=== PATIENT | male | born 1950 | race American Indian/Alaskan Native ===

== ENCOUNTER 2016-11-03 14:39 | Inpatient (IN) | payer MEDICAID ==
[~2016-11-03] VITALS: Ht 172.7 cm; Wt 90.7 kg
[~2016-11-03 14:39] MED LIST: ASPIR 8181 MG ORAL; ATORVASTATIN CA20 MG ORAL; LISINOPRIL5 MG ORAL
[2016-11-03 14:41] VITALS: BP 113/82
[2016-11-03 15:37] LABS: BASOPHILS % (AUTO) 0.8 % (0.0-2.0); EOSINOPHILS % (AUTO) 1.9 % (0.0-3.0); LYMPHOCYTES % (AUTO) 19.4 % (20.0-45.0); MEAN CORPUSCULAR HEMOGLOBIN 30.7 PG (27.0-31.0); MEAN CORPUSCULAR HGB CONC 33.5 G/DL (32.0-36.0); MEAN CORPUSCULAR VOLUME 92 FL (80-99); MEAN PLATELET VOLUME 9.6 FL (6.5-10.1); MONOCYTES % (AUTO) 6.1 % (1.0-10.0); NEUTROPHILS % (AUTO) 71.8 % (45.0-75.0); PLATELET COUNT 193 K/UL (150-450); RED BLOOD COUNT 5.56 M/UL (4.70-6.10); RED CELL DISTRIBUTION WIDTH 11.6 % (11.6-14.8); WHITE BLOOD COUNT 9.5 K/UL (4.8-10.8)
--- NOTE | 2016-11-03 15:45 | Emergency Room Report ---
History of Present Illness General Chief Complaint: Seizure Source: Patient, Medical Record, EMS Present Illness HPI [id number] sent from [facility] for ?seizure Prior CVA Patient not sure if he had seizure/not No complaints currently Denies chest pain, SOB, abd pain, headache, fever/chills, neck pain Allergies: Coded Allergies: No Known Allergies (Unverified , 11/03/16) Patient History Past Medical History: HTN, CHF, CVA/TIA Past Surgical History: none Pertinent Family History: none Social History: Reports: alcohol use Immunizations: UTD Reviewed Nursing Documentation: PMH: Agreed, PSxH: Agreed Nursing Documentation-PMH Hx Hypertension: Yes Hx COPD: Yes Review of Systems All Other Systems: negative except mentioned in HPI Physical Exam Vital Signs Date Time Temp Pulse Resp B/P (MAP) Pulse Ox O2 Delivery O2 Flow Rate FiO2 11/03/16 14:31 86 15 144/70 99 11/03/16 14:41 Room Air 11/03/16 14:41 97.1 Sp02 EP Interpretation: reviewed, normal General Appearance: normal inspection, well appearing, no apparent distress, alert, GCS 15, non-toxic Head: normocephalic, atraumatic Eyes: bilateral eye PERRL, bilateral eye EOMI ENT: normal ENT inspection, hearing grossly normal, normal voice Neck: normal inspection, full range of motion, supple, no bony tend Respiratory: normal inspection, lungs clear, normal breath sounds, no respiratory distress, no retraction, no wheezing Cardiovascular #1: regular rate, rhythm, no edema Gastrointestinal: normal inspection, normal bowel sounds, non tender, soft, no guarding, no hernia Genitourinary: no CVA tenderness Musculoskeletal: normal inspection, back normal, normal range of motion, Catracho' s Sign negative Neurologic: normal inspection, alert, oriented x3, responsive, strickler attendant III-XII nml as tested, motor strength/tone normal, speech normal Psychiatric: normal inspection, judgement/insight normal, mood/affect normal Skin: normal inspection Medical Decision Making Diagnostic Impression: Primary Impression: Seizure Additional Impression: Encephalomalacia ER Course VSS. Afebrile No focal neuro deficits Previous CVA as focus? CT head today no CVA, mass, mass effect. Left posterior.parietal and occipital encephalomalacia. Labs: No leuks. H&h stable. No metabolic abnormality ECG: NSR. No ischemia Given age, history of prior CVA, warrants admission for Neuro consult, for new onset seizure Enceph possible foci of seizure activity Loaded with Keppra in ED Endorsed to Dr Oconnor for Dr Mcduffie at 5pm med/surg admission EKG Diagnostic Results Rate: normal Rhythm: NSR ST Segments: no acute changes ASA given to the pt in ED: No Rhythm Strip Diag. Results EP Interpretation: yes Rate: 85 Rhythm: NSR, no PVC's, no ectopy Chest X-Ray Diagnostic Results Chest X-Ray Diagnostic Results : Chest X-Ray Ordered: Yes # of Views/Limited/Complete: 1 View Indication: Other - seizure EP Interpretation: Yes Interpretation: no consolidation, no effusion, no pneumothorax, no acute cardiopulmonary disease Impression: No acute disease Electronically Signed by: Dr Jordyn Mann MD Last Vital Signs Date Time Temp Pulse Resp B/P (MAP) Pulse Ox O2 Delivery O2 Flow Rate FiO2 11/03/16 14:41 97.1 98 32 113/82 96 Room Air Status: improved Disposition: ADMITTED INPATIENT Condition: Serious JORDYN MANN M.D. Nov 03, 2016 15:45
[2016-11-03 15:56] LABS: TROPONIN I < 0.30 ng/mL (<=0.30)
[2016-11-03 15:59] LABS: ALANINE AMINOTRANSFERASE 15 U/L (3-41); ALBUMIN/GLOBULIN RATIO 1.5 (1.0-2.7); ANION GAP 22 (5-15); ASPARTATE AMINO TRANSFERASE 16 U/L (5-40); CALCIUM 9.4 mg/dL (8.6-10.2); CARBON DIOXIDE 22 mEQ/L (20-30); CHLORIDE 95 mEQ/L (98-107); CREATININE 0.9 mg/dL (0.7-1.2); GLOMERULAR FILTRATION RATE > 60 mL/min (>60); HEMOLYSIS 43; POTASSIUM 4.3 mEQ/L (3.4-4.9); SODIUM 139 mEQ/L (135-145); TOTAL PROTEIN 7.1 g/dL (6.6-8.7)
[2016-11-03 16:09] LABS: CKMB 2.1 ng/mL (< 6.7)
[2016-11-03 16:39] VITALS: BP 116/73
--- NOTE | 2016-11-03 16:42 | Diagnostic Imaging Report ---
Indication: Shortness of breath Technique: One view of the chest Comparison: none Findings: Lungs and pleural spaces are clear. Heart size is normal Impression: No acute process
--- NOTE | 2016-11-03 16:49 | Diagnostic Imaging Report ---
Indications: Altered mental status Technique: Spiral acquisitions obtained through the brain. Angled axial and coronal 5 x 5 mm slices were reconstructed. Total dose length product 1453 mGycm. CTDI vol(s) 70 mGy. Dose reduction achieved using automated exposure control Comparison: None Findings: There is a large area of cystic encephalomalacia in the left posterior parasagittal parietal occipital lobe. This communicates with the atrium of left lateral ventricle and results in ex vacuo dilatation of it. There is an old lacunar infarct in the anterior limb of the right internal capsule, extending into the anterior nevarez radiata and caudate body. There is an old lacunar infarct in the left lentiform nucleus. No acute hemorrhage or edema. No mass effect or midline shift. Normal esquivel-white differentiation. Intact calvarium. Visualized orbits and sinuses are unremarkable. Impression: Left posterior parietal and occipital encephalomalacia, consistent with old posterior cerebral artery distribution infarct Bilateral basal ganglia lacunar infarcts Negative for acute intracranial bleed or mass effect. The CT scanner at [facility] is accredited by the [employer] and the scans are performed using protocols designed to limit radiation exposure to as low as reasonably achievable to attain images of sufficient resolution adequate for diagnostic evaluation.
[2016-11-03] MEDS ORDERED: levETIRAcetam 1,000mg/NS100ml 100 ML IVPB ONE (17:00)
[2016-11-03] MEDS ORDERED: Zolpidem 5mg tab ORAL PRN (17:30)
[2016-11-03] MEDS ORDERED: Mylanta II UD 30ml ORAL PRN (17:30)
[2016-11-03] MEDS ORDERED: LORazepam Inj 2mg/ml 1ml IV PRN (17:30)
[2016-11-03] MEDS ORDERED: Morphine Sulfate 2mg/ml Inj IVP PRN (17:30)
[2016-11-03] MEDS ORDERED: Miralax 17gm pkt ORAL PRN (17:30)
[2016-11-03 18:05] VITALS: BP 102/66
[2016-11-03 18:38] VITALS: BP 106/60
[2016-11-03] MEDS ORDERED: LORazepam 1mg tab GT PRN (19:30)
[2016-11-03] MEDS: Heparin 5000 units/ml inj SUBQ SCH (20:38)
[2016-11-04 00:10] VITALS: BP 105/73
[2016-11-04 04:20] VITALS: BP 102/68
[2016-11-04 07:10] LABS: BASOPHILS % (AUTO) 0.9 % (0.0-2.0); EOSINOPHILS % (AUTO) 3.3 % (0.0-3.0); LYMPHOCYTES % (AUTO) 33.7 % (20.0-45.0); MEAN CORPUSCULAR HEMOGLOBIN 32.2 PG (27.0-31.0); MEAN CORPUSCULAR HGB CONC 35.1 G/DL (32.0-36.0); MEAN CORPUSCULAR VOLUME 92 FL (80-99); MEAN PLATELET VOLUME 9.5 FL (6.5-10.1); MONOCYTES % (AUTO) 8.6 % (1.0-10.0); NEUTROPHILS % (AUTO) 53.5 % (45.0-75.0); PLATELET COUNT 165 K/UL (150-450); RED BLOOD COUNT 4.96 M/UL (4.70-6.10); RED CELL DISTRIBUTION WIDTH 11.6 % (11.6-14.8)
[2016-11-04 07:27] LABS: ALANINE AMINOTRANSFERASE 14 U/L (3-41); ALBUMIN/GLOBULIN RATIO 1.4 (1.0-2.7); ANION GAP 11 (5-15); ASPARTATE AMINO TRANSFERASE 16 U/L (5-40); CALCIUM 8.8 mg/dL (8.6-10.2); CARBON DIOXIDE 28 mEQ/L (20-30); CHLORIDE 103 mEQ/L (98-107); CREATININE 0.9 mg/dL (0.7-1.2); GLOMERULAR FILTRATION RATE > 60 mL/min (>60); HEMOLYSIS 6; POTASSIUM 4.2 mEQ/L (3.4-4.9); SODIUM 142 mEQ/L (135-145); TOTAL PROTEIN 6.7 g/dL (6.6-8.7)
[2016-11-04 08:30] VITALS: BP 111/73
[2016-11-04] MEDS: Lisinopril 2.5mg tab ORAL SCH (08:54)
[2016-11-04] MEDS: Heparin 5000 units/ml inj SUBQ SCH ×2 (08:56→20:19)
--- NOTE | 2016-11-04 10:19 | Consultation ---
History of Present Illness General Date patient seen: Nov 04, 2016 Time patient seen: 08:30 Chief Complaint: Seizure Referring physician: dr Oconnor Reason for Consultation: inpatient management Present Illness HPI 65y/old male with PMH of CVA , HTN, hyperlipidemia , COPD, hx of ETOH abuse was sent from SNF for possible seizure Patient was not sure if he had seizure , did not remember Denied chest pain, SOB, abd pain, headache, fever/chills, neck pain Workup in ED revealed stable VS, CT head : Left posterior parietal and occipital encephalomalacia, consistent with old posterior cerebral artery distribution infarct Bilateral basal ganglia lacunar infarcts Negative for acute intracranial bleed or mass effect. urine tox screen negative CXR no acute cardiopulmonary pathology patient was loaded with Keppra and admitted for further management Allergies: Coded Allergies: No Known Allergies (Unverified , 11/03/16) Medication History Scheduled Aspirin* (Aspir 81*), 81 MG ORAL DAILY, (Reported) Atorvastatin Calcium* (Atorvastatin Calcium*), 20 MG ORAL BEDTIME, (Reported) Levetiracetam (Levetiracetam), 500 MG ORAL Q12HR Lisinopril (Lisinopril*), 10 MG ORAL DAILY, (Reported) Patient History Healthcare decision maker GIOVANY ARIAS (CONSERVATOR) Resuscitation status Full Code Advanced Directive on File Past Medical/Surgical History Past Medical/Surgical History: (1) Hyperlipidemia (2) History of CVA (cerebrovascular accident) (3) HTN (hypertension) (4) COPD (chronic obstructive pulmonary disease) Review of Systems ROS Narrative unable to obtain patient was unable to provide history Physical Exam General Appearance: no apparent distress, other - awake, orienetd x2 Lines, tubes and drains: peripheral HEENT: normocephalic, atraumatic, anicteric, mucous membranes moist Neck: non-tender, supple Respiratory/Chest: lungs clear, no respiratory distress, no accessory muscle use Cardiovascular/Chest: normal peripheral pulses, normal rate, regular rhythm, no JVD Abdomen: normal bowel sounds, soft Extremities: non-tender, no calf tenderness Skin Exam: warm/dry Neurologic: abnormal gait, alert, responsive - but slow in responses Musculoskeletal: normal muscle bulk Last 24 Hour Vital Signs Date Time Temp Pulse Resp B/P (MAP) Pulse Ox O2 Delivery O2 Flow Rate FiO2 11/04/16 08:54 111/73 11/04/16 08:30 97.7 64 20 111/73 97 Room Air 11/04/16 04:20 97.7 74 19 102/68 96 Room Air 11/04/16 00:10 97.7 71 20 105/73 96 Room Air 11/03/16 18:38 97.5 83 18 106/60 96 Room Air 11/03/16 18:05 97.9 93 20 102/66 95 Room Air 11/03/16 18:05 99.0 93 20 102/66 95 Room Air 11/03/16 16:39 99.0 86 27 116/73 97 Room Air 11/03/16 14:41 97.1 98 32 113/82 96 Room Air 11/03/16 14:41 86 15 Room Air 11/03/16 14:31 86 15 144/70 99 Laboratory Tests Test 11/03/16 15:03 11/03/16 16:30 11/04/16 05:30 White Blood Count 9.5 K/UL (4.8-10.8) 8.0 K/UL (4.8-10.8) Red Blood Count 5.56 M/UL (4.70-6.10) 4.96 M/UL (4.70-6.10) Hemoglobin 17.1 G/DL (14.2-18.0) 16.0 G/DL (14.2-18.0) Hematocrit 51.0 % (42.0-52.0) 45.5 % (42.0-52.0) Mean Corpuscular Volume 92 FL (80-99) 92 FL (80-99) Mean Corpuscular Hemoglobin 30.7 PG (27.0-31.0) 32.2 PG (27.0-31.0) H Mean Corpuscular Hemoglobin Concent 33.5 G/DL (32.0-36.0) 35.1 G/DL (32.0-36.0) Red Cell Distribution Width 11.6 % (11.6-14.8) 11.6 % (11.6-14.8) Platelet Count 193 K/UL (150-450) 165 K/UL (150-450) Mean Platelet Volume 9.6 FL (6.5-10.1) 9.5 FL (6.5-10.1) Neutrophils (%) (Auto) 71.8 % (45.0-75.0) 53.5 % (45.0-75.0) Lymphocytes (%) (Auto) 19.4 % (20.0-45.0) L 33.7 % (20.0-45.0) Monocytes (%) (Auto) 6.1 % (1.0-10.0) 8.6 % (1.0-10.0) Eosinophils (%) (Auto) 1.9 % (0.0-3.0) 3.3 % (0.0-3.0) H Basophils (%) (Auto) 0.8 % (0.0-2.0) 0.9 % (0.0-2.0) Sodium Level 139 mEQ/L (135-145) 142 mEQ/L (135-145) Potassium Level 4.3 mEQ/L (3.4-4.9) 4.2 mEQ/L (3.4-4.9) Chloride Level 95 mEQ/L (98-107) L 103 mEQ/L (98-107) Carbon Dioxide Level 22 mEQ/L (20-30) 28 mEQ/L (20-30) Anion Gap 22 (5-15) H 11 (5-15) Blood Urea Nitrogen 17 mg/dL (7-23) 14 mg/dL (7-23) Creatinine 0.9 mg/dL (0.7-1.2) 0.9 mg/dL (0.7-1.2) Estimat Glomerular Filtration Rate > 60 mL/min (>60) > 60 mL/min (>60) Glucose Level 96 mg/dL (74-106) 85 mg/dL (74-106) Calcium Level 9.4 mg/dL (8.6-10.2) 8.8 mg/dL (8.6-10.2) Total Bilirubin 0.5 mg/dL (0.0-1.2) 0.7 mg/dL (0.0-1.2) Aspartate Amino Transf (AST/SGOT) 16 U/L (5-40) 16 U/L (5-40) Alanine Aminotransferase (ALT/SGPT) 15 U/L (3-41) 14 U/L (3-41) Alkaline Phosphatase 91 U/L (40-129) 89 U/L (40-129) Total Creatine Kinase 109 U/L (38-174) Creatine Kinase MB 2.1 ng/mL (< 6.7) Creatine Kinase MB Relative Index 1.9 Troponin I < 0.30 ng/mL (<=0.30) Total Protein 7.1 g/dL (6.6-8.7) 6.7 g/dL (6.6-8.7) Albumin 4.3 g/dL (3.5-5.2) 4.0 g/dL (3.5-5.2) Globulin 2.8 g/dL 2.7 g/dL Albumin/Globulin Ratio 1.5 (1.0-2.7) 1.4 (1.0-2.7) Urine Opiates Screen Negative (NEGATIVE) Urine Barbiturates Screen Negative (NEGATIVE) Phencyclidine (PCP) Screen Negative (NEGATIVE) Urine Amphetamines Screen Negative (NEGATIVE) Urine Benzodiazepines Screen Negative (NEGATIVE) Urine Cocaine Screen Negative (NEGATIVE) Urine Marijuana (THC) Screen Negative (NEGATIVE) Height (Feet): 5 Height (Inches): 8.00 Weight (Pounds): 200 Medications Current Medications Medications (Trade) Dose Ordered Sig/Ashli Route PRN Reason Start Time Stop Time Status Last Admin Dose Admin Acetaminophen (Tylenol) 650 mg Q4H PRN ORAL fever 11/03/16 17:30 12/03/16 17:29 Al Hydroxide/Mg Hydroxide (Mylanta II) 30 ml Q6H PRN ORAL dyspepsia 11/03/16 17:30 12/03/16 17:29 Dextrose (Dextrose 50%) STAT PRN IV Hypoglycemia 11/03/16 17:30 12/03/16 17:29 Heparin Sodium (Porcine) (Heparin 5000 units/ml) 5,000 units EVERY 12 HOURS SUBQ 11/03/16 21:00 12/03/16 20:59 11/04/16 08:56 Lisinopril (Zestril) 10 mg DAILY ORAL 11/04/16 09:00 12/04/16 08:59 Lorazepam (Ativan 2mg/ml 1ml) 2 mg Q1H PRN IV seizures 11/03/16 17:30 11/10/16 17:29 Morphine Sulfate (Morphine Sulfate) 1 mg Q4H PRN IVP For Pain 11/03/16 17:30 11/10/16 17:29 Ondansetron HCl (Zofran) 4 mg Q6H PRN IVP Nausea & Vomiting 11/03/16 17:30 12/03/16 17:29 Polyethylene Glycol (Miralax) 17 gm HSPRN PRN ORAL Constipation 11/03/16 17:30 12/03/16 17:29 Zolpidem Tartrate (Ambien) 5 mg HSPRN PRN ORAL Insomnia 11/03/16 17:30 11/10/16 17:29 Assessment/Plan Assessment/Plan ASSESSMENT likely new onset of seizure encephalomalacia hx of multiple CVAs extensive ischemic cerebrovascular disease acute encephalopathy on chronic dementia HTN Hyperlipidemia COPD hx of ETOH abuse PLAN OF CARE MS floor seizure precautions neuro eval started on Keppra EEG Carotid Duplex BP management with SARITA and optimize further as needed ASA, statin check lipid panel DVT prophylaxis O2 prn to keep sat above 92% pulmonary toilet prn Bowel regimen PT/OT case discussed and evaluated by supervising physician Carlos Manuel Rubalcava)Samantha NP Nov 04, 2016 10:19
[2016-11-04] MEDS ORDERED: DuoNeb 0.5-3(2.5)mg/3ml neb HHN PRN (12:00)
[2016-11-04 12:45] VITALS: BP 111/65
--- NOTE | 2016-11-04 15:38 | History & Physical ---
History and Physical History & Physicial Dictated for Int Med-Dr Oconnor no. [id number]. FIORELLA FARIAS Nov 04, 2016 15:38
[2016-11-04 16:16] VITALS: BP 102/64
--- NOTE | 2016-11-04 16:25 | Neurology Progress Note ---
Objective Physical Exam Last Vital Signs Date Time Temp Pulse Resp B/P (MAP) Pulse Ox O2 Delivery O2 Flow Rate FiO2 11/04/16 16:16 97.0 60 18 102/64 96 Room Air Laboratory Tests Test 11/03/16 16:30 11/04/16 05:30 Urine Opiates Screen Negative (NEGATIVE) Urine Barbiturates Screen Negative (NEGATIVE) Phencyclidine (PCP) Screen Negative (NEGATIVE) Urine Amphetamines Screen Negative (NEGATIVE) Urine Benzodiazepines Screen Negative (NEGATIVE) Urine Cocaine Screen Negative (NEGATIVE) Urine Marijuana (THC) Screen Negative (NEGATIVE) White Blood Count 8.0 K/UL (4.8-10.8) Red Blood Count 4.96 M/UL (4.70-6.10) Hemoglobin 16.0 G/DL (14.2-18.0) Hematocrit 45.5 % (42.0-52.0) Mean Corpuscular Volume 92 FL (80-99) Mean Corpuscular Hemoglobin 32.2 PG (27.0-31.0) H Mean Corpuscular Hemoglobin Concent 35.1 G/DL (32.0-36.0) Red Cell Distribution Width 11.6 % (11.6-14.8) Platelet Count 165 K/UL (150-450) Mean Platelet Volume 9.5 FL (6.5-10.1) Neutrophils (%) (Auto) 53.5 % (45.0-75.0) Lymphocytes (%) (Auto) 33.7 % (20.0-45.0) Monocytes (%) (Auto) 8.6 % (1.0-10.0) Eosinophils (%) (Auto) 3.3 % (0.0-3.0) H Basophils (%) (Auto) 0.9 % (0.0-2.0) Sodium Level 142 mEQ/L (135-145) Potassium Level 4.2 mEQ/L (3.4-4.9) Chloride Level 103 mEQ/L (98-107) Carbon Dioxide Level 28 mEQ/L (20-30) Anion Gap 11 (5-15) Blood Urea Nitrogen 14 mg/dL (7-23) Creatinine 0.9 mg/dL (0.7-1.2) Estimat Glomerular Filtration Rate > 60 mL/min (>60) Glucose Level 85 mg/dL (74-106) Calcium Level 8.8 mg/dL (8.6-10.2) Total Bilirubin 0.7 mg/dL (0.0-1.2) Aspartate Amino Transf (AST/SGOT) 16 U/L (5-40) Alanine Aminotransferase (ALT/SGPT) 14 U/L (3-41) Alkaline Phosphatase 89 U/L (40-129) Total Protein 6.7 g/dL (6.6-8.7) Albumin 4.0 g/dL (3.5-5.2) Globulin 2.7 g/dL Albumin/Globulin Ratio 1.4 (1.0-2.7) Impression/Recommendations Problems: (1) single seizure episode (2) dementia vascular (3) HTN (hypertension) (4) Hyperlipidemia (5) COPD (chronic obstructive pulmonary disease) (6) Encephalomalacia Status: stable Recommendations #[id number] JENNIFER SAMUELS Nov 04, 2016 16:25
[2016-11-04] MEDS: Aspirin Baby 81mg ORAL SCH (17:28)
[2016-11-04] MEDS: Thiamine 100mg tab ORAL SCH (17:28)
[2016-11-04 20:00] VITALS: BP 100/66
--- NOTE | 2016-11-04 23:15 | Consultation ---
DATE OF CONSULTATION: 11/04/2016 NEUROLOGICAL CONSULTATION REQUESTING PHYSICIAN: Greg Oconnor M.D. PRIMARY DOCTOR: Martín Guo M.D. History of Present Illness: The patient is a 65-year-old man resident of a nursing facility brought to this hospital for assessment of reportedly single seizure episode. According to paramedics, the patient who is normally oriented x1 carrying diagnosis of Alzheimer disease was found to be less responsive. According to the nursing staff, the patient had a full body seizure lasting five minutes. His vital signs were stable, blood pressure , heart rate of 87, respirations 20. Blood sugar 102. The patient was restless, unable to stay still, but subsequently he was brought to the emergency room. His vital signs remained stable. On admission, lab work was obtained revealing unremarkable CBC study. Chemistry panel with anion gap of 22, otherwise normal. Toxicology panel was negative. Imaging studies included chest x-ray revealing no acute process and CT scan of the brain without contrast was obtained revealing bilateral basal ganglia lacunar infarct, old as well as left posterior parietal and occipital encephalomalacia consistent with old posterior cerebral artery distribution infarct on the left. There is no midline shift. No hemorrhage noted. Since admission till present, there was no further seizure activity detected. Past Medical History: The patient unable to provide with information. According to outside record, he has a history of old stroke affecting his left side, has COPD, heart failure, essential hypertension, mixed hyperlipidemia, history of alcohol abuse, gastrostomy, and history of insomnia. Current Medications: His treatment now, he was given one dose of Keppra 1000 mg IV and currently 500 mg b.i.d. He is on lisinopril, lorazepam p.r.n., morphine as needed, ondansetron, zolpidem, subcutaneous heparin, aspirin, and Mylanta. Allergies: None reported. No anticonvulsant given previously with no history of seizures. FAMILY HISTORY: Noncontributory. Review Of Systems: Fourteen point review of symptoms was obtained, although the patient has very poor recollections of event. He was not sure why he is in the hospital. He is unaware of having seizures or stroke. PHYSICAL EXAMINATION: General: Well-developed and well-nourished man, not in acute distress. Vital Signs: His vital signs now stable, blood pressure 142/80 and respirations 18. HEENT: Head, normocephalic. There is no evidence of trauma. Eyes, ears, and throat are clear. NECK: Supple. No meningeal signs. Musculoskeletal: Unremarkable. There are no deformities. Peripheral pulses 1+, symmetric. Mental Status Examination: He is alert and oriented to his name, but unable to give his age. He recalled the name of his nursing facility, but unable to provide any medical history stating that he is well. He was able to follow simple commands, but slowly. Cranial Nerve II: Pupils both responding to light and accommodation. Extraocular movement intact. CRANIAL NERVE V: Normal corneal responses. CRANIAL NERVE VII: Minor facial asymmetry. CRANIAL NERVE VIII: Normal hearing. CRANIAL NERVES IX THROUGH XII: Tongue is in midline. Motor Examination: Able to lift arms and legs against gravity. No pronation drift. Deep reflexes 1+ bilaterally. Plantar responses flexor. Sensory Examination: Withdrawing to pin stimulation both arms and legs. Gait not tested, but reported able to ambulate without assistance. IMPRESSION: 1. New onset of generalized seizure activity, probably onset of chronic disorder in the setting of old strokes. 2. Extensive ischemic cerebrovascular disease with multiple old strokes. 3. Hypertension. 4. Hyperlipidemia. 5. History of substance abuse. 6. History of heart failure. RECOMMENDATIONS: 1. Check EEG. 2. Start on Keppra 500 mg twice a day given high risk of recurrent seizures due to presence of organic brain disorder. 3. The patient has significant cognitive loss, most likely vascular dementia given previous strokes. 4. Supervision will be necessary to have his treatment. 5. Given history of alcohol abuse, maintain thiamine 100 mg supplements. 6. No evidence of acute alcohol intoxication or drug use noted. Thank you for allowing me to see this interesting patient in neurological consultation. Franko Fields M.D. DR: DAVID JOB#: [id number] CC:
[2016-11-05] VITALS: BP 108/64
--- NOTE | 2016-11-05 03:00 | History and Physical Report ---
DATE OF ADMISSION: 11/04/2016 Chief Complaint: The patient is a 65-year-old white male, who presents with a chief complaint of witnessed seizure. History Of Present Illness: The patient is a resident of [facility]. The patient has no previous history of seizure disorder. According to staff at [facility], the patient had a witnessed seizure yesterday, 11/03/2016. This is new for the patient. The patient was evaluated in [place] emergency room. The patient was loaded with Keppra at that time. The patient is admitted with new onset seizure disorder. PAST MEDICAL HISTORY: Significant for: 1. History of cerebrovascular disease, status post cerebrovascular accident. 2. Hypertension. 3. Hypercholesterolemia. 4. Chronic obstructive pulmonary disease. PAST SURGICAL HISTORY: The patient denies. CURRENT MEDICATIONS: 1. Aspirin 81 mg one tablet p.o. daily. 2. Lipitor 20 mg one tablet p.o. daily. 3. Lisinopril 10 mg one tablet p.o. daily. ALLERGIES: No known drug allergies. Social History: The patient is a resident of [facility]. The patient denies tobacco use having quit in 2014. The patient denies alcohol use having quit in 2014. The patient states he previously was a heavy drinker of alcohol. The patient is single and is disabled. Review Of Systems: Constitutional: The patient denies weight loss or weight gain. The patient denies fevers or chills. HEENT: The patient denies ear or throat pain. The patient denies headache. Cardiovascular: The patient denies palpitations or chest pain. Chest: The patient denies wheeze or shortness of breath. Abdomen: The patient denies nausea, vomiting, diarrhea, or constipation. Genitourinary: The patient denies dysuria or increased frequency of urination. Neuromuscular: The patient complains of new onset of seizure as above. The patient denies generalized weakness. PHYSICAL EXAMINATION: Vital Signs: Temperature 97.5 degrees, respirations 18, pulse 83, and blood pressure 106/60. General: The patient is a well-developed and well-nourished white male, in no apparent distress. HEENT: Eyes, pupils equal and responsive to light and accommodation. Extraocular movements are intact. NECK: Supple without lymphadenopathy. Chest: Lungs are clear to auscultation bilaterally without wheezes or rales. Cardiovascular: Regular rhythm and rate. S1 and S2 are normal without murmurs, rubs, or gallops. Abdomen: Soft, nontender, and nondistended. Positive bowel sounds. No evidence of hepatosplenomegaly. Currently, no rebound or guarding noted. EXTREMITIES: Negative for clubbing, cyanosis, or edema. RECTAL/GENITAL: Refused. Neurologic: Cranial nerves II through XII are grossly intact without focal deficits. Laboratory Studies: WBC 9.5, hemoglobin 17.1, hematocrit 51.0, and platelets 193,000. Sodium 139, potassium 4.3, chloride 95, CO2 of 22, BUN 17, creatinine 0.9, and glucose 96. CT scan of the brain revealed left posterior parietal and occipital encephalomalacia consistent with old posterior cerebral artery infarct. ASSESSMENT: This is a 65-year-old white male. 1. New onset seizure. 2. Hypertension. 3. Cerebrovascular disease. 4. Hypercholesterolemia. TREATMENT: 1. New onset seizure. A Neurology consultation was obtained with Dr. Fields. An EEG is pending. We will follow recommendations of Neurology. The patient has been started on Keppra empirically. 2. Hypertension. Continue lisinopril as above. 3. Hypercholesterolemia. Continue atorvastatin as above. 4. History of cerebrovascular disease. Continue aspirin as above. Brian Borden M.D. DR: TRACI JOB#: [id number] CC:
[2016-11-05 04:00] VITALS: BP 112/78
[2016-11-05 07:02] LABS: BASOPHILS % (AUTO) 1.2 % (0.0-2.0); EOSINOPHILS % (AUTO) 3.7 % (0.0-3.0); MEAN CORPUSCULAR HEMOGLOBIN 31.8 PG (27.0-31.0); MEAN CORPUSCULAR HGB CONC 34.5 G/DL (32.0-36.0); MEAN CORPUSCULAR VOLUME 92 FL (80-99); MEAN PLATELET VOLUME 9.6 FL (6.5-10.1); MONOCYTES % (AUTO) 8.8 % (1.0-10.0); NEUTROPHILS % (AUTO) 44.3 % (45.0-75.0); PLATELET COUNT 160 K/UL (150-450); RED BLOOD COUNT 4.88 M/UL (4.70-6.10); RED CELL DISTRIBUTION WIDTH 11.7 % (11.6-14.8)
[2016-11-05 07:06] LABS: ANION GAP 11 (5-15); CALCIUM 8.8 mg/dL (8.6-10.2); CARBON DIOXIDE 27 mEQ/L (20-30); CHLORIDE 104 mEQ/L (98-107); CHOLESTEROL 153 mg/dL (< 200); CHOLESTEROL/HDL RATIO 3.8 (3.3-4.4); CREATININE 0.8 mg/dL (0.7-1.2); GLOMERULAR FILTRATION RATE > 60 mL/min (>60); HEMOLYSIS 4; LDL CHOLESTEROL (CALC.) 78 mg/dL (60-99); SODIUM 142 mEQ/L (135-145)
[2016-11-05 08:00] VITALS: BP 88/64
[2016-11-05] MEDS ORDERED: Aspirin EC 81mg tab ORAL SCH (09:00)
[2016-11-05] MEDS: Lisinopril 2.5mg tab ORAL SCH ×2 (09:00→09:38)
[2016-11-05] MEDS: Aspirin Baby 81mg ORAL SCH (09:39)
[2016-11-05] MEDS: Thiamine 100mg tab ORAL SCH (09:39)
[2016-11-05] MEDS: Heparin 5000 units/ml inj SUBQ SCH ×2 (09:40→21:23)
[2016-11-05 12:00] VITALS: BP 106/65
--- NOTE | 2016-11-05 12:41 | Pulmonology Progress Note ---
Assessment/Plan Assessment/Plan ASSESSMENT possible new onset of seizure encephalomalacia hx of multiple CVAs extensive ischemic cerebrovascular disease acute encephalopathy on chronic ( likely vascular) dementia HTN Hyperlipidemia COPD Hx of ETH abuse PLAN OF CARE MS floor seizure precautions neuro eval continue Keppra EEG Carotid Duplex BP management with SARITA and optimize further as needed ASA, statin lipid panel with elevated TG and normal LDL and TC counseled on low at diet DVT prophylaxis O2 prn to keep sat above 92% pulmonary toilet prn Bowel regimen PT/OT continue Thiamine case discussed and evaluated by supervising physician Subjective Allergies: Coded Allergies: No Known Allergies (Unverified , 11/03/16) Subjective no further seizure activity seen and evaluated by neuro denies chest sarmiento, SOB, any new weakness more awake and alert today and able to answer questions but slow in responses Objective Last 24 Hour Vital Signs Date Time Temp Pulse Resp B/P (MAP) Pulse Ox O2 Delivery O2 Flow Rate FiO2 11/05/16 08:00 97.3 66 16 88/64 95 Room Air 11/05/16 07:18 66 18 Room Air 11/05/16 04:00 97.7 62 21 112/78 97 Room Air 11/05/16 00:00 97.5 57 21 108/64 96 Room Air 11/04/16 20:00 97.2 63 21 100/66 94 Room Air 11/04/16 19:56 62 18 Room Air 11/04/16 16:16 97.0 60 18 102/64 96 Room Air 11/04/16 12:45 97.0 62 18 111/65 96 Room Air Intake and Output 11/05/16 11/06/16 19:00 07:00 # Bowel Movements 1 Objective General Appearance: no apparent distress, awake, oriented, responsive but slow in responses Lines, tubes and drains: peripheral HEENT: normocephalic, atraumatic, anicteric, mucous membranes moist Neck: non-tender, supple Respiratory/Chest: lungs clear, no respiratory distress, no accessory muscle use Cardiovascular/Chest: normal peripheral pulses, normal rate, regular rhythm, no JVD Abdomen: normal bowel sounds, soft Extremities: non-tender, no calf tenderness Skin Exam: warm/dry Neurologic: abnormal gait, alert, responsive, Microbiology Date/Time Source Procedure Growth Status 11/03/16 17:38 Nasal Nares MRSA Culture - Final NO METHICILLIN RESISTANT STAPH AUREUS... Complete 11/03/16 17:38 Rectum VRE Culture - Final NO VANCOMYCIN RESISTANT ENTEROCOCCUS ... Complete Laboratory Tests 11/05/16 04:30: White Blood Count 7.0, Red Blood Count 4.88, Hemoglobin 15.5, Hematocrit 45.0, Mean Corpuscular Volume 92, Mean Corpuscular Hemoglobin 31.8H, Mean Corpuscular Hemoglobin Concent 34.5, Red Cell Distribution Width 11.7, Platelet Count 160, Mean Platelet Volume 9.6, Neutrophils (%) (Auto) 44.3L, Lymphocytes (%) (Auto) 42.0, Monocytes (%) (Auto) 8.8, Eosinophils (%) (Auto) 3.7H, Basophils (%) (Auto ) 1.2, Sodium Level 142, Potassium Level 4.0, Chloride Level 104, Carbon Dioxide Level 27, Anion Gap 11, Blood Urea Nitrogen 16, Creatinine 0.8, Estimat Glomerular Filtration Rate > 60, Glucose Level 86, Calcium Level 8.8, Triglycerides Level 175H, Cholesterol Level 153, LDL Cholesterol 78, HDL Cholesterol 40, Cholesterol/HDL Ratio 3.8 Current Medications Medications (Trade) Dose Ordered Sig/Ashli Route PRN Reason Start Time Stop Time Status Last Admin Dose Admin Acetaminophen (Tylenol) 650 mg Q4H PRN ORAL fever 11/03/16 17:30 12/03/16 17:29 Al Hydroxide/Mg Hydroxide (Mylanta II) 30 ml Q6H PRN ORAL dyspepsia 11/03/16 17:30 12/03/16 17:29 Albuterol/ Ipratropium (DuoNeb 0.5-3(2.5)mg/3ml) 3 ml Q4H PRN HHN Shortness of Breath 11/04/16 12:00 11/09/16 11:59 Aspirin (ASA) 81 mg DAILY ORAL 11/04/16 17:00 12/04/16 16:59 11/05/16 09:39 Dextrose (Dextrose 50%) STAT PRN IV Hypoglycemia 11/03/16 17:30 12/03/16 17:29 Heparin Sodium (Porcine) (Heparin 5000 units/ml) 5,000 units EVERY 12 HOURS SUBQ 11/03/16 21:00 12/03/16 20:59 11/05/16 09:40 Levetiracetam (Keppra) 500 mg Q12HR ORAL 11/04/16 21:00 12/04/16 20:59 11/05/16 09:38 Lisinopril (Zestril) 10 mg DAILY ORAL 11/04/16 09:00 12/04/16 08:59 Lorazepam (Ativan 2mg/ml 1ml) 2 mg Q1H PRN IV seizures 11/03/16 17:30 11/10/16 17:29 Morphine Sulfate (Morphine Sulfate) 1 mg Q4H PRN IVP For Pain 11/03/16 17:30 11/10/16 17:29 Ondansetron HCl (Zofran) 4 mg Q6H PRN IVP Nausea & Vomiting 11/03/16 17:30 12/03/16 17:29 Polyethylene Glycol (Miralax) 17 gm HSPRN PRN ORAL Constipation 11/03/16 17:30 12/03/16 17:29 Thiamine HCl (Vitamin B1) 100 mg DAILY ORAL 11/04/16 17:00 12/04/16 16:59 11/05/16 09:39 Zolpidem Tartrate (Ambien) 5 mg HSPRN PRN ORAL Insomnia 11/03/16 17:30 11/10/16 17:29 [facility]Samantha NP Nov 05, 2016 12:41
--- NOTE | 2016-11-05 15:20 | Internal Med Progress Note ---
Subjective Date of Service: Nov 05, 2016 Physician Name Fiorella Farias Attending Physician Greg Oconnor MD Current Medications Medications (Trade) Dose Ordered Sig/Ashli Route PRN Reason Start Time Stop Time Status Last Admin Dose Admin Acetaminophen (Tylenol) 650 mg Q4H PRN ORAL fever 11/03/16 17:30 12/03/16 17:29 Al Hydroxide/Mg Hydroxide (Mylanta II) 30 ml Q6H PRN ORAL dyspepsia 11/03/16 17:30 12/03/16 17:29 Albuterol/ Ipratropium (DuoNeb 0.5-3(2.5)mg/3ml) 3 ml Q4H PRN HHN Shortness of Breath 11/04/16 12:00 11/09/16 11:59 Aspirin (ASA) 81 mg DAILY ORAL 11/04/16 17:00 12/04/16 16:59 11/05/16 09:39 Dextrose (Dextrose 50%) STAT PRN IV Hypoglycemia 11/03/16 17:30 12/03/16 17:29 Heparin Sodium (Porcine) (Heparin 5000 units/ml) 5,000 units EVERY 12 HOURS SUBQ 11/03/16 21:00 12/03/16 20:59 11/05/16 09:40 Levetiracetam (Keppra) 500 mg Q12HR ORAL 11/04/16 21:00 12/04/16 20:59 11/05/16 09:38 Lisinopril (Zestril) 10 mg DAILY ORAL 11/04/16 09:00 12/04/16 08:59 Lorazepam (Ativan 2mg/ml 1ml) 2 mg Q1H PRN IV seizures 11/03/16 17:30 11/10/16 17:29 Morphine Sulfate (Morphine Sulfate) 1 mg Q4H PRN IVP For Pain 11/03/16 17:30 11/10/16 17:29 Ondansetron HCl (Zofran) 4 mg Q6H PRN IVP Nausea & Vomiting 11/03/16 17:30 12/03/16 17:29 Polyethylene Glycol (Miralax) 17 gm HSPRN PRN ORAL Constipation 11/03/16 17:30 12/03/16 17:29 Thiamine HCl (Vitamin B1) 100 mg DAILY ORAL 11/04/16 17:00 12/04/16 16:59 11/05/16 09:39 Zolpidem Tartrate (Ambien) 5 mg HSPRN PRN ORAL Insomnia 11/03/16 17:30 11/10/16 17:29 Allergies: Coded Allergies: No Known Allergies (Unverified , 11/03/16) ROS Limited/Unobtainable: No Constitutional: Reports: no symptoms HEENT: Reports: no symptoms Cardiovascular: Reports: no symptoms Respiratory: Reports: no symptoms Gastrointestinal/Abdominal: Reports: no symptoms Genitourinary: Reports: no symptoms Neurologic/Psychiatric: Reports: no symptoms Subjective 65 YO M admitted with new onset seizure. Await EEG. Cover for Int Amol-Dr Oconnor Objective Last Vital Signs Date Time Temp Pulse Resp B/P (MAP) Pulse Ox O2 Delivery O2 Flow Rate FiO2 11/05/16 08:00 97.3 66 16 88/64 95 Room Air General Appearance: WD/WN, no apparent distress, alert EENT: PERRL/EOMI, normal ENT inspection Neck: non-tender, normal alignment, supple Cardiovascular: normal peripheral pulses, normal rate, regular rhythm, no gallop/murmur, no JVD Respiratory/Chest: chest wall non-tender, lungs clear, normal breath sounds, no respiratory distress, no accessory muscle use Abdomen: normal bowel sounds, non tender, soft, no organomegaly, no mass Extremities: normal range of motion 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, no motor/sensory deficits Laboratory Tests Test 11/05/16 04:30 White Blood Count 7.0 K/UL (4.8-10.8) Red Blood Count 4.88 M/UL (4.70-6.10) Hemoglobin 15.5 G/DL (14.2-18.0) Hematocrit 45.0 % (42.0-52.0) Mean Corpuscular Volume 92 FL (80-99) Mean Corpuscular Hemoglobin 31.8 PG (27.0-31.0) H Mean Corpuscular Hemoglobin Concent 34.5 G/DL (32.0-36.0) Red Cell Distribution Width 11.7 % (11.6-14.8) Platelet Count 160 K/UL (150-450) Mean Platelet Volume 9.6 FL (6.5-10.1) Neutrophils (%) (Auto) 44.3 % (45.0-75.0) L Lymphocytes (%) (Auto) 42.0 % (20.0-45.0) Monocytes (%) (Auto) 8.8 % (1.0-10.0) Eosinophils (%) (Auto) 3.7 % (0.0-3.0) H Basophils (%) (Auto) 1.2 % (0.0-2.0) Sodium Level 142 mEQ/L (135-145) Potassium Level 4.0 mEQ/L (3.4-4.9) Chloride Level 104 mEQ/L (98-107) Carbon Dioxide Level 27 mEQ/L (20-30) Anion Gap 11 (5-15) Blood Urea Nitrogen 16 mg/dL (7-23) Creatinine 0.8 mg/dL (0.7-1.2) Estimat Glomerular Filtration Rate > 60 mL/min (>60) Glucose Level 86 mg/dL (74-106) Calcium Level 8.8 mg/dL (8.6-10.2) Triglycerides Level 175 mg/dL (< 150) H Cholesterol Level 153 mg/dL (< 200) LDL Cholesterol 78 mg/dL (60-99) HDL Cholesterol 40 mg/dL (> 60) Cholesterol/HDL Ratio 3.8 (3.3-4.4) Microbiology Date/Time Source Procedure Growth Status 11/03/16 17:38 Nasal Nares MRSA Culture - Final NO METHICILLIN RESISTANT STAPH AUREUS... Complete 11/03/16 17:38 Rectum VRE Culture - Final NO VANCOMYCIN RESISTANT ENTEROCOCCUS ... Complete Intake and Output 11/05/16 11/06/16 19:00 07:00 # Bowel Movements 1 Assessment/Plan Problem List: (1) New onset seizure Assessment & Plan: See neruo note. Cont keppra per neurology. Await EEG. (2) HTN (hypertension) Assessment & Plan: Cont lisinopril. (3) History of CVA (cerebrovascular accident) Assessment & Plan: CT=old CVA (4) COPD (chronic obstructive pulmonary disease) (5) Hyperlipidemia Status: progressing FIORELLA FARIAS Nov 05, 2016 15:20
[2016-11-05 16:00] VITALS: BP 115/76
[2016-11-05 20:00] VITALS: BP 121/73
[2016-11-06] VITALS: BP 118/75
[2016-11-06 04:00] VITALS: BP 123/77
[2016-11-06 07:38] LABS: BASOPHILS % (AUTO) 0.9 % (0.0-2.0); EOSINOPHILS % (AUTO) 4.3 % (0.0-3.0); LYMPHOCYTES % (AUTO) 38.6 % (20.0-45.0); MEAN CORPUSCULAR HEMOGLOBIN 31.4 PG (27.0-31.0); MEAN CORPUSCULAR HGB CONC 33.7 G/DL (32.0-36.0); MEAN CORPUSCULAR VOLUME 93 FL (80-99); NEUTROPHILS % (AUTO) 47.2 % (45.0-75.0); PLATELET COUNT 152 K/UL (150-450); RED BLOOD COUNT 5.01 M/UL (4.70-6.10)
[2016-11-06 07:49] LABS: ANION GAP 10 (5-15); CARBON DIOXIDE 29 mEQ/L (20-30); CHLORIDE 103 mEQ/L (98-107); CREATININE 0.9 mg/dL (0.7-1.2); GLOMERULAR FILTRATION RATE > 60 mL/min (>60); HEMOLYSIS 2; POTASSIUM 4.1 mEQ/L (3.4-4.9); SODIUM 142 mEQ/L (135-145)
[2016-11-06 08:27] VITALS: BP 130/65
[2016-11-06 08:37] VITALS: BP 102/69
[2016-11-06] MEDS: Thiamine 100mg tab ORAL SCH (08:39)
[2016-11-06] MEDS: Aspirin Baby 81mg ORAL SCH (08:39)
[2016-11-06] MEDS: Heparin 5000 units/ml inj SUBQ SCH (08:40)
[2016-11-06] MEDS: Lisinopril 2.5mg tab ORAL SCH (08:41)
[2016-11-06] MEDS ORDERED: KEPPRA500 M3 ORAL (11:26)
--- NOTE | 2016-11-06 11:28 | Internal Med Progress Note ---
Subjective Date of Service: Nov 06, 2016 Physician Name Fiorella Farias Attending Physician Greg Oconnor MD Current Medications Medications (Trade) Dose Ordered Sig/Ashli Route PRN Reason Start Time Stop Time Status Last Admin Dose Admin Acetaminophen (Tylenol) 650 mg Q4H PRN ORAL fever 11/03/16 17:30 12/03/16 17:29 Al Hydroxide/Mg Hydroxide (Mylanta II) 30 ml Q6H PRN ORAL dyspepsia 11/03/16 17:30 12/03/16 17:29 Albuterol/ Ipratropium (DuoNeb 0.5-3(2.5)mg/3ml) 3 ml Q4H PRN HHN Shortness of Breath 11/04/16 12:00 11/09/16 11:59 Aspirin (ASA) 81 mg DAILY ORAL 11/04/16 17:00 12/04/16 16:59 11/06/16 08:39 Dextrose (Dextrose 50%) STAT PRN IV Hypoglycemia 11/03/16 17:30 12/03/16 17:29 Heparin Sodium (Porcine) (Heparin 5000 units/ml) 5,000 units EVERY 12 HOURS SUBQ 11/03/16 21:00 12/03/16 20:59 11/06/16 08:40 Levetiracetam (Keppra) 500 mg Q12HR ORAL 11/04/16 21:00 12/04/16 20:59 11/06/16 08:39 Lisinopril (Zestril) 10 mg DAILY ORAL 11/04/16 09:00 12/04/16 08:59 Lorazepam (Ativan 2mg/ml 1ml) 2 mg Q1H PRN IV seizures 11/03/16 17:30 11/10/16 17:29 Morphine Sulfate (Morphine Sulfate) 1 mg Q4H PRN IVP For Pain 11/03/16 17:30 11/10/16 17:29 Ondansetron HCl (Zofran) 4 mg Q6H PRN IVP Nausea & Vomiting 11/03/16 17:30 12/03/16 17:29 Polyethylene Glycol (Miralax) 17 gm HSPRN PRN ORAL Constipation 11/03/16 17:30 12/03/16 17:29 Thiamine HCl (Vitamin B1) 100 mg DAILY ORAL 11/04/16 17:00 12/04/16 16:59 11/06/16 08:39 Zolpidem Tartrate (Ambien) 5 mg HSPRN PRN ORAL Insomnia 11/03/16 17:30 11/10/16 17:29 Allergies: Coded Allergies: No Known Allergies (Unverified , 11/03/16) ROS Limited/Unobtainable: No Constitutional: Reports: no symptoms HEENT: Reports: no symptoms Cardiovascular: Reports: no symptoms Respiratory: Reports: no symptoms Gastrointestinal/Abdominal: Reports: no symptoms Genitourinary: Reports: no symptoms Neurologic/Psychiatric: Reports: no symptoms Subjective 65 YO M admitted with new onset seizure. Await EEG result. Cover for Int Amol- Dr Oconnor. No new seizure since admission Objective Last Vital Signs Date Time Temp Pulse Resp B/P (MAP) Pulse Ox O2 Delivery O2 Flow Rate FiO2 11/06/16 08:41 102/69 11/06/16 08:37 58 11/06/16 08:27 97.7 20 98 Room Air Laboratory Tests Test 11/06/16 06:45 White Blood Count 7.0 K/UL (4.8-10.8) Red Blood Count 5.01 M/UL (4.70-6.10) Hemoglobin 15.7 G/DL (14.2-18.0) Hematocrit 46.6 % (42.0-52.0) Mean Corpuscular Volume 93 FL (80-99) Mean Corpuscular Hemoglobin 31.4 PG (27.0-31.0) H Mean Corpuscular Hemoglobin Concent 33.7 G/DL (32.0-36.0) Red Cell Distribution Width 12.0 % (11.6-14.8) Platelet Count 152 K/UL (150-450) Mean Platelet Volume 9.0 FL (6.5-10.1) Neutrophils (%) (Auto) 47.2 % (45.0-75.0) Lymphocytes (%) (Auto) 38.6 % (20.0-45.0) Monocytes (%) (Auto) 9.0 % (1.0-10.0) Eosinophils (%) (Auto) 4.3 % (0.0-3.0) H Basophils (%) (Auto) 0.9 % (0.0-2.0) Sodium Level 142 mEQ/L (135-145) Potassium Level 4.1 mEQ/L (3.4-4.9) Chloride Level 103 mEQ/L (98-107) Carbon Dioxide Level 29 mEQ/L (20-30) Anion Gap 10 (5-15) Blood Urea Nitrogen 16 mg/dL (7-23) Creatinine 0.9 mg/dL (0.7-1.2) Estimat Glomerular Filtration Rate > 60 mL/min (>60) Glucose Level 84 mg/dL (74-106) Calcium Level 9.0 mg/dL (8.6-10.2) Microbiology Date/Time Source Procedure Growth Status 11/03/16 17:38 Nasal Nares MRSA Culture - Final NO METHICILLIN RESISTANT STAPH AUREUS... Complete 11/03/16 17:38 Rectum VRE Culture - Final NO VANCOMYCIN RESISTANT ENTEROCOCCUS ... 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 Cont keppra per neurology. Await EEG. (2) HTN (hypertension) Assessment & Plan: Cont lisinopril. (3) History of CVA (cerebrovascular accident) Assessment & Plan: CT=old CVA (4) COPD (chronic obstructive pulmonary disease) (5) Hyperlipidemia Status: stable Assessment/Plan Discharge to [facility] today. FIORELLA FARIAS Nov 06, 2016 11:28
[2016-11-06 12:00] VITALS: BP 104/67
--- NOTE | 2016-11-06 12:51 | Diagnostic Imaging Report ---
APPROVED REPORT CPT Code: 95302 Vascular Symptoms Dizziness and Vertigo RIGHT SIDE: CCA - Imaging reveals no significant plaque within the extracranial carotid arteries. The Doppler spectral flow analysis is within normal limits throughout the extracranial carotid arteries. LEFT SIDE: BULB -Imaging reveals irregular, minimal plaque in the left carotid bulb. ICA arteries. The Doppler spectral flow analysis is within normal limits throughout the extracranial carotid arteries. BILATERAL VERTEBRAL- The vertebral arteries were not well visualized at this time.
--- NOTE | 2016-11-06 15:53 | Pulmonology Progress Note ---
Assessment/Plan Problems: (1) New onset seizure (2) COPD (chronic obstructive pulmonary disease) (3) History of CVA (cerebrovascular accident) (4) HTN (hypertension) Assessment/Plan asymptomatic improving dc planning in progress bp controlled respiratory treatment Subjective ROS Limited/Unobtainable: No Constitutional: Reports: no symptoms HEENT: Repors: no symptoms Respiratory: Reports: no symptoms Allergies: Coded Allergies: No Known Allergies (Unverified , 11/03/16) Objective Last 24 Hour Vital Signs Date Time Temp Pulse Resp B/P (MAP) Pulse Ox O2 Delivery O2 Flow Rate FiO2 11/06/16 12:00 98.1 58 20 104/67 96 Room Air 11/06/16 08:41 102/69 11/06/16 08:37 58 102/69 11/06/16 08:27 97.7 61 20 130/65 98 Room Air 11/06/16 07:45 60 16 Room Air 11/06/16 04:00 97.5 62 20 123/77 94 Room Air 11/06/16 00:00 97.8 66 18 118/75 95 Room Air 11/05/16 20:00 97.0 67 18 121/73 94 Room Air 11/05/16 19:50 71 18 Room Air 11/05/16 16:00 98.2 65 15 115/76 95 Room Air General Appearance: WD/WN HEENT: normocephalic, atraumatic Respiratory/Chest: chest wall non-tender, lungs clear Cardiovascular: normal peripheral pulses, normal rate Abdomen: normal bowel sounds, soft, non tender Extremities: no clubbing Skin: no rash Microbiology Date/Time Source Procedure Growth Status 11/03/16 17:38 Nasal Nares MRSA Culture - Final NO METHICILLIN RESISTANT STAPH AUREUS... Complete 11/03/16 17:38 Rectum VRE Culture - Final NO VANCOMYCIN RESISTANT ENTEROCOCCUS ... Complete Laboratory Tests 11/06/16 06:45: White Blood Count 7.0, Red Blood Count 5.01, Hemoglobin 15.7, Hematocrit 46.6, Mean Corpuscular Volume 93, Mean Corpuscular Hemoglobin 31.4H, Mean Corpuscular Hemoglobin Concent 33.7, Red Cell Distribution Width 12.0, Platelet Count 152, Mean Platelet Volume 9.0, Neutrophils (%) (Auto) 47.2, Lymphocytes (%) (Auto) 38.6, Monocytes (%) (Auto) 9.0, Eosinophils (%) (Auto) 4.3H, Basophils (%) (Auto ) 0.9, Sodium Level 142, Potassium Level 4.1, Chloride Level 103, Carbon Dioxide Level 29, Anion Gap 10, Blood Urea Nitrogen 16, Creatinine 0.9, Estimat Glomerular Filtration Rate > 60, Glucose Level 84, Calcium Level 9.0 Current Medications Medications (Trade) Dose Ordered Sig/Ashli Route PRN Reason Start Time Stop Time Status Last Admin Dose Admin Acetaminophen (Tylenol) 650 mg Q4H PRN ORAL fever 11/03/16 17:30 12/03/16 17:29 Al Hydroxide/Mg Hydroxide (Mylanta II) 30 ml Q6H PRN ORAL dyspepsia 11/03/16 17:30 12/03/16 17:29 Albuterol/ Ipratropium (DuoNeb 0.5-3(2.5)mg/3ml) 3 ml Q4H PRN HHN Shortness of Breath 11/04/16 12:00 11/09/16 11:59 Aspirin (ASA) 81 mg DAILY ORAL 11/04/16 17:00 12/04/16 16:59 11/06/16 08:39 Dextrose (Dextrose 50%) STAT PRN IV Hypoglycemia 11/03/16 17:30 12/03/16 17:29 Heparin Sodium (Porcine) (Heparin 5000 units/ml) 5,000 units EVERY 12 HOURS SUBQ 11/03/16 21:00 12/03/16 20:59 11/06/16 08:40 Levetiracetam (Keppra) 500 mg Q12HR ORAL 11/04/16 21:00 12/04/16 20:59 11/06/16 08:39 Lisinopril (Zestril) 10 mg DAILY ORAL 11/04/16 09:00 12/04/16 08:59 Lorazepam (Ativan 2mg/ml 1ml) 2 mg Q1H PRN IV seizures 11/03/16 17:30 11/10/16 17:29 Morphine Sulfate (Morphine Sulfate) 1 mg Q4H PRN IVP For Pain 11/03/16 17:30 11/10/16 17:29 Ondansetron HCl (Zofran) 4 mg Q6H PRN IVP Nausea & Vomiting 11/03/16 17:30 12/03/16 17:29 Polyethylene Glycol (Miralax) 17 gm HSPRN PRN ORAL Constipation 11/03/16 17:30 12/03/16 17:29 Thiamine HCl (Vitamin B1) 100 mg DAILY ORAL 11/04/16 17:00 12/04/16 16:59 11/06/16 08:39 Zolpidem Tartrate (Ambien) 5 mg HSPRN PRN ORAL Insomnia 11/03/16 17:30 11/10/16 17:29 SONJA ROGERS Nov 06, 2016 15:53
--- NOTE | 2016-11-07 12:35 | Discharge Summary ---
Discharge Summary Hospital Course Date of Admission Nov 03, 2016 at 16:30 Date of Discharge Nov 06, 2016 at 16:25 Admitting Diagnosis s/p seizure HPI Juve Rose Tarun is a 65 year old male who was admitted on Nov 03, 2016 at 16:30 for Status Post Seizure Hospital Course dc summary #[id number] Discharge Discharge Disposition Patient was discharged to SNF/Subacute Facility(03) Discharge Diagnoses: Horowitz ([facility]),Samantha OTT Nov 07, 2016 12:35
--- NOTE | 2016-11-07 21:45 | Electroencephalogram ---
DATE OF PROCEDURE: 11/04/2016 ELECTROENCEPHALOGRAPHY REPORT REFERRING PHYSICIAN: Greg Oconnor M.D. History: This is a 65-year-old man with history of stroke and left-sided weakness, hypertension, and left posterior parietal as well as occipital encephalomalacia, presenting with paroxysmal activity. In addition, he was started on Keppra which was discontinued. Technique: EEG was done using 18 electrodes placed [id number], [id number] montages according to 10/20 International system during the recording described as awake, but poorly cooperative and restless. In the most wakeful portions of recording, background activity consists of 7-8 cycles per second [id number] voltage activity with intermittent appearance of polymorphic delta transients 2-3 Hertz of higher amplitude predominantly in the left temporal area, T3 and T5, and at times generalized in bilateral temporal areas. There were no clinical signs of seizure activity. No asymmetry from side to side. No spike or wave activities noted. Impression: Abnormal electroencephalogram with presence of intermittent delta wave slowing in the left temporal area and presence of mild generalized slowing. Comment: The above abnormality indicates mild global cerebral dysfunction with appearance of significant slowing in the left temporal area suggestive of underlying structural abnormality, presumably old stroke. Absence of epileptogenic activity does not rule out seizure disorder. Current localized slowing has a risk of being epileptogenic as well. Franko Fields M.D. DR: DAVID JOB#: [id number] CC:
--- NOTE | 2016-11-08 09:31 | Discharge Summary 2 SIG ---
DATE OF ADMISSION: 11/03/2016 DATE OF DISCHARGE: 11/06/2016 Reason For Admission: 65-year-old male with a history of COPD, hypertension, hyperlipidemia, dementia, and alcohol abuse, was sent from the [facility] facility for possible seizure episode. The patient himself was not sure if he had seizure since he did not remember anything. He denied chest pain, shortness of breath, abdominal pain, headache, fever, chills, and neck pain. Workup in the emergency room revealed stable vital signs. CT of the head revealed no acute intracranial pathology, but demonstrated left posterior parietal occipital encephalomalacia consistent with old posterior cerebral artery distribution infarct, bilateral basal ganglia lacunar infarct. Urine tox screen was negative. Chest x-ray revealed no acute cardiopulmonary pathology. The patient was loaded with Keppra and admitted for further management. ADMITTING DIAGNOSES: 1. New onset of seizures. 2. Encephalomalacia. 3. History of multiple cerebrovascular accidents. 4. Extensive ischemic cerebrovascular disease. 5. Acute encephalopathy on chronic dementia. 6. Hypertension. 7. Hyperlipidemia. 8. Chronic obstructive pulmonary disease. 9. History of alcohol abuse. Hospital Stay: The patient was admitted to Med/Surg floor. The patient kept on seizure precaution. Neurological evaluation was requested. The patient was started on Keppra. Neurologist seen and evaluated the patient and ordered EEG as well as the carotid duplex. EEG was abnormal, carotid Duplex was essentially negative. Even though the patient had a single episode of seizure, neurologist recommended continue antiepileptic medication due to the high risk for recurrent seizure given history of organic brain disorder. Thiamine was continued due to the alcohol abuse. No evidence of acute alcoholic intoxication or drug use. Lipid panel revealed elevated triglycerides- 175, otherwise no acute finding. The patient was counseled on low-fat, low-cholesterol diet. 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 Blood pressure was managed with SARITA inhibitor and was stable. The patient was continued on aspirin and statin. DVT prophylaxis provided. Supplemental oxygen provided as needed to keep saturation above 92%. Pulse oximetry was stable on room air. Pulmonary toilet provided as needed. Bowel regimen was instituted. The patient was stable for discharge back to [facility] facility. DISCHARGE DIAGNOSES: 1. New onset of seizure, single episode. 2. Encephalomalacia. 3. History of multiple cerebrovascular accidents. 4. Extensive ischemic cerebrovascular disease. 5. Acute encephalopathy on chronic dementia. 6. Hypertension. 7. Hyperlipidemia. 8. Chronic obstructive pulmonary disease. 9. History of alcohol abuse. Discharge Medications: See medication reconciliation list. The patient was started on Keppra. Discharge Instructions: The patient was discharged to [facility] facility. FOLLOWUP: Follow up with medical doctor at the facility. Greg Oconnor M.D. Samantha DownsN[facility] Langone HealthAnup Pineda DR: CATINA JOB#: [id number] CC: ANIRUDH
--- NOTE | 2016-11-10 15:57 | Cardiology Report ---
APPROVED REPORT EKG Measurement Heart [id number] Normal sinus rhythm Left axis deviation Low voltage QRS Abnormal ECG
== END 2016-11-06 16:25 | DRG 53 ==
LOC: EDBD 14:39 → EMR 16:00 → 4E 16:30 → EDBEDREQ 16:35
DX: G40.89 Other seizures (principal); G93.40 Encephalopathy, unspecified; G93.89 Other specified disorders of brain; F01.50 Vascular dementia, unspecified severity, without behavioral disturbance, psychotic disturbance, mood disturbance, and anxiety; I10 Essential (primary) hypertension; E78.5 Hyperlipidemia, unspecified; J44.9 Chronic obstructive pulmonary disease, unspecified; Z86.73 Personal history of transient ischemic attack (TIA), and cerebral infarction without residual deficits; Z87.891 Personal history of nicotine dependence; F10.21 Alcohol dependence, in remission
CPT/HCPCS: 36415; 70450; 71010; 80048; 80053; 80061; 80299; 80300; 82550; 82553; 82962; 84484; 85025; 87081; 93005; 93880; 94664; 95819; 99285